=== PATIENT | male | born 1960 | race Caucasian/White ===

== ENCOUNTER 2016-09-23 11:14 | Inpatient (IN) | payer OTHER ==
[2016-09-23 11:49] VITALS: BMI 30.9
--- NOTE | 2016-09-23 13:44 | HP ---
CIWA Score - CIWA Score Nausea/Vomitin Muscle Tremors: 3 Anxiety: 3 Agitation: 3 Paroxysmal Sweats: 3 Orientation: 0-Oriented Tacttile Disturbances: 2-Mild Itch/Numbness/Burn Auditory Disturbances: 0-None Visual Disturbances: 0-None Headache: 1-Very Mild CIWA-Ar Total Score: 17 Admission ROS BHS - HPI Chief Complaint: I need help to stop using alcohol and cocaine . Allergies/Adverse Reactions: Allergies Allergy/AdvReac Type Severity Reaction Status Date / Time aspirin AdvReac Severe Vomiting Verified 09/23/16 12:49 History of Present Illness: 56 y/o m h pt with h/o chronic alcoholism and cocaine dep. Exam Limitations: No Limitations - Ebola screening Have you traveled outside of the country in the last 21 days: No Have you had contact with anyone from an Ebola affected area: No Have you been sick,other than usual withdrawal symptoms: No - Review of Systems Constitutional: Malaise, Night Sweats EENT: reports: Dental Problems (dentures) Respiratory: reports: No Symptoms reported Cardiac: reports: No Symptoms Reported GI: reports: Nausea, Indigestion : reports: No Symptoms Reported Musculoskeletal: reports: No Symptoms Reported Integumentary: reports: No Symptoms Reported Neuro: reports: Headache, Tremors Endocrine: reports: No Symptoms Reported Hematology: reports: No Symptoms Reported Psychiatric: reports: Agitated, Anxious, Depressed Other Systems: Reviewed and Negative Patient History - Patient Medical History Hx Anemia: No Hx Asthma: No Hx Chronic Obstructive Pulmonary Disease (COPD): No Hx Cancer: No Hx Cardiac Disorders: No Hx Congestive Heart Failure: No Hx Hypertension: No Hx Hypercholesterolemia: No Hx Pacemaker: No HX Cerebrovascular Accident: No Hx Seizures: No Hx Dementia: No Hx Diabetes: No Hx Gastrointestinal Disorders: Yes (acid reflux) Hx Liver Disease: No Hx Genitourinary Disorders: No Hx Sexually Transmitted Disorders: No Hx Renal Disease (ESRD): No Hx Thyroid Disease: No Hx Human Immunodeficiency Virus (HIV): No Hx Hepatitis C: No Hx Depression: Yes Hx Suicide Attempt: No Hx Bipolar Disorder: Yes Hx Schizophrenia: No - Patient Surgical History Past Surgical History: Yes Hx Neurologic Surgery: No Hx Cataract Extraction: No Hx Cardiac Surgery: No Hx Lung Surgery: No Hx Breast Surgery: No Hx Breast Biopsy: No Hx Abdominal Surgery: No Hx Appendectomy: No Hx Cholecystectomy: No Hx Genitourinary Surgery: No Hx Section: No Hx Orthopedic Surgery: Yes (left hand tendon repair in 1982) Other Surgical History: LEFT HAND -1982 Anesthesia Reaction: No - PPD History Previous Implant?: Yes Documented Results: Positive w/o proof Implanted On Prior [facility] Admission?: No PPD to be Administered?: No - Reproductive History Patient is a Female of Child Bearing Age (11 -55 yrs old): No - Smoking Cessation Smoking history: Current every day smoker Have you smoked in the past 12 months: Yes Aproximately how many cigarettes per day: 6 Cigars Per Day: 0 Hx Chewing Tobacco Use: No Initiated information on smoking cessation: Yes 'Breaking Loose' booklet given: 09/23/16 - Substance & Tx. History Hx Alcohol Use: Yes Hx Substance Use: Yes Substance Use Type: Alcohol, Cocaine, Marijuana Hx Substance Use Treatment: Yes ([facility]) - Substances Abused Crack Route: Oral Frequency: Daily Amount used: $100-200 Age of first use: 24 Date of Last Use: 09/21/16 Alcohol-beer/rum Route: Oral Frequency: Daily Amount used: 3 (16 oz.)/1 pt.rum Age of first use: 13 Date of Last Use: 09/21/16 Marijuana Route: Smoking Frequency: Daily Amount used: $5 Age of first use: 11 Date of Last Use: 09/21/16 Family Disease History - Family Disease History Family Disease History: Diabetes: Father (), Brother, Other: Father, Mother (alzheimers ) Admission Physical Exam BHS - Vital Signs Vital Signs: Vital Signs - 24 hr 09/23/16 11:47 Temperature 97.5 F L Pulse Rate 85 Respiratory 18 Rate Blood Pressure 135/87 - Physical General Appearance: Yes: Disheveled, Tremorous, Irritable, Anxious HEENTM: Yes: EOMI, Hearing grossly Normal, Normal ENT Inspection, Normocephalic , Normal Voice, NEIDA, Other (dentures) Respiratory: Yes: Chest Non-Tender, Lungs Clear, Normal Breath Sounds, No Respiratory Distress Neck: Yes: Trachea in good position, Other (h/o c/s stenosis) Breast: Yes: Within Normal Limits Cardiology: Yes: Regular Rhythm, Regular Rate, S1, S2 Abdominal: Yes: Non Tender, Flat, Soft, Increased Bowel Sounds Genitourinary: Yes: Within Normal Limits Back: Yes: Decreased Range of Motion Musculoskeletal: Yes: Joint Stiffness Extremities: Yes: Tremors Neurological: Yes: project executive II-XII NML intact, Fully Oriented, Alert, Motor Strength 5/5, Normal Response Integumentary: Yes: Moist Lymphatic: Yes: Within Normal Limits - Diagnostic (1) Alcohol dependence with uncomplicated withdrawal Current Visit: Yes Status: Chronic (2) Chronic back pain Current Visit: Yes Status: Chronic Qualifiers: Back pain location: low back pain Back pain laterality: bilateral Sciatica presence: without sciatica Qualified Code(s): M54.5 - Low back pain; G89.29 - Other chronic pain (3) GERD (gastroesophageal reflux disease) Current Visit: Yes Status: Chronic Qualifiers: Esophagitis presence: without esophagitis Qualified Code(s): K21.9 - Gastro-esophageal reflux disease without esophagitis (4) Hypertension Current Visit: Yes Status: Chronic Qualifiers: Hypertension type: essential hypertension Qualified Code(s): I10 - Essential (primary) hypertension (5) Bipolar II disorder Current Visit: Yes Status: Suspected (6) Nicotine dependence Current Visit: Yes Status: Acute (7) Depression Current Visit: Yes Status: Chronic Qualifiers: Major depression episode severity: unspecified Cleared for Admission S - Detox or Rehab [facility] Level of Care: Medically Managed Detox Regimen/Protocol: Valium S Breath Alcohol Content Breath Alcohol Content: 0 Urine Drug Screen - Results Drug Screen Negative: No Urine Drug Screen Results: THC-Marijuana, MONALISA-Cocaine, TCA-Tricyclic Antidepress
[2016-09-23] MEDS ORDERED: diazePAM 5 MG TABLET PO PRN (14:13)
[2016-09-23] MEDS ORDERED: MAGNESIUM HYDROX 2400MG/30ML ORAL SUSPENSION 30 ML CUP PO PRN (14:13)
[2016-09-23] MEDS ORDERED: ACETAMINOPHEN 325 MG TABLET (FP) PO PRN (14:13)
[2016-09-23] MEDS ORDERED: IBUPROFEN 400 MG TABLET (FP) PO PRN (14:13)
[2016-09-23] MEDS ORDERED: MAGNESIUM CITRATE 300 ML BOTTLE PO PRN (14:13)
[2016-09-23] MEDS ORDERED: diphenhydrAMINE HCL 50 MG CAPSULE PO PRN (14:13)
[2016-09-23] MEDS ORDERED: LOPERAMIDE HCL 2 MG CAPSULE PO PRN (14:13)
[2016-09-23] MEDS ORDERED: MENTHOL/PHENOL 1 EACH UD MM PRN (14:13)
[2016-09-23] MEDS ORDERED: NICOTINE POLACRILEX 2 MG GUM BUC PRN (14:13)
[2016-09-23] MEDS ORDERED: guaiFENesin/D-METHORPHAN HB 10 ML UNIT-DOSE CUPS PO PRN (14:13)
[2016-09-23] MEDS ORDERED: hydrOXYzine PAMOATE 25 MG CAPSULE (FP) PO PRN (14:13)
[2016-09-23] MEDS ORDERED: MAG HYDROX/AL HYDROX/SIMETH 30 ML UNIT-DOSE CUP PO PRN (14:13)
[2016-09-23] MEDS ORDERED: P-EPHED 60MG/TRIPROLIDI 2.5MG TABLET PO PRN (14:13)
[2016-09-23] MEDS ORDERED: diazePAM 5 MG TABLET PO ONE (14:55)
[2016-09-23 18:17] LABS: URINE APPEARANCE CLEAR; URINE BILIRUBIN NEGATIVE (NEGATIVE); URINE BLOOD NEGATIVE (NEGATIVE); URINE COLOR YELLOW; URINE GLUCOSE (UA) NEGATIVE (NEGATIVE); URINE KETONE NEGATIVE (NEGATIVE); URINE LEUK ESTERASE NEGATIVE (NEGATIVE); URINE NITRITE NEGATIVE (NEGATIVE); URINE PROTEIN NEGATIVE (NEGATIVE); URINE UROBILINOGEN NEGATIVE E.U./dl (0.2-1.0)
[2016-09-23] MEDS ORDERED: CLOTRIMAZOLE 1% 10 ML SOLUTION TP SCH (22:00)
[2016-09-23] MEDS ORDERED: THIAMINE HCL 100 MG TABLET (FP) PO SCH (22:00)
[2016-09-23] MEDS: diazePAM 5 MG TABLET PO SCH (22:58)
[2016-09-24] MEDS: diazePAM 5 MG TABLET PO SCH (05:47)
[2016-09-24] MEDS ORDERED: CYCLOBENZAPRINE HCL 10 MG TABLET (FP) PO PRN (06:07)
[2016-09-24 06:32] VITALS: BP 143/92; PULSE 86; TEMP 97.1
[2016-09-24 09:54] LABS: MCH 31.5 pg (25.7-33.7); MCHC 34.6 g/dl (32.0-35.9); MEAN CELL VOLUME 90.9 fl (80-96); MEAN PLT VOLUME 7.9 fl (7.5-11.1); PLATELET COUNT 303 K/MM3 (134-434); RDW 13.8 % (11.9-15.9); WHITE BLOOD COUNT 6.5 K/mm3 (4.0-10.0)
[2016-09-24] MEDS ORDERED: PRENATAL VITAMINS W/ FOLIC ACID TABLET (FP) PO SCH (10:00)
[2016-09-24 10:06] LABS: ALBUMIN 4.2 g/dl (3.4-5.0); ANION GAP 9 (8-16); BILIRUBIN,TOTAL 0.4 mg/dL (0.2-1.0); CALCIUM 8.9 mg/dL (8.5-10.1); CO2 25 mmol/L (21-32); COCKROFT - GAULT 100.3; GLUCOSE,RANDOM 125 mg/dL (74-106); SGOT/AST 41 U/L (15-37); SGPT/ALT 42 U/L (12-78); TOT PROT 7.2 g/dl (6.4-8.2)
[2016-09-24 10:07] LABS: ALK PHOS 64 U/L (45-117)
--- NOTE | 2016-09-24 11:07 | DS ---
[facility] Detox Discharge Summary Admission Date: 09/23/16 Discharge Date: 09/24/16 - History Present History: Alcohol Dependence Additional Comments: PT DECLINED TO CONTINUE WITH DETOX. PT LEFT TREATMENT VERY EARLY THIS MORNING AFTER SOME DISRUPTIVE BEHAVIORS, PER NURSE'S REPORT. Pertinent Past History: BIPOLAR DISORDER - Physical Exam Results Vital Signs: Vital Signs Temperature 97.1 F L 09/24/16 06:32 Pulse Rate 86 09/24/16 06:32 Respiratory Rate 16 09/24/16 06:32 Blood Pressure 143/92 09/24/16 06:32 O2 Sat by Pulse Oximetry (%) Pertinent Admission Physical Exam Findings: WITHDRAWAL SX Laboratory Last Values WBC 6.5 K/mm3 (4.0-10.0) 09/24/16 06:00 RBC 4.65 M/mm3 (4.00-5.60) 09/24/16 06:00 Hgb 14.6 GM/dL (11.7-16.9) 09/24/16 06:00 Hct 42.3 % (35.4-49) 09/24/16 06:00 MCV 90.9 fl (80-96) 09/24/16 06:00 MCHC 34.6 g/dl (32.0-35.9) 09/24/16 06:00 RDW 13.8 % (11.9-15.9) 09/24/16 06:00 Plt Count 303 K/MM3 (134-434) 09/24/16 06:00 MPV 7.9 fl (7.5-11.1) 09/24/16 06:00 Sodium 141 mmol/L (136-145) 09/24/16 06:00 Potassium 4.4 mmol/L (3.5-5.1) 09/24/16 06:00 Chloride 107 mmol/L (98-107) 09/24/16 06:00 Carbon Dioxide 25 mmol/L (21-32) 09/24/16 06:00 Anion Gap 9 (8-16) 09/24/16 06:00 BUN 17 mg/dL (7-18) 09/24/16 06:00 Creatinine 1.0 mg/dL (0.7-1.3) 09/24/16 06:00 Creat Clearance w eGFR > 60 (>60) 09/24/16 06:00 Random Glucose 125 mg/dL (74-106) H 09/24/16 06:00 Calcium 8.9 mg/dL (8.5-10.1) 09/24/16 06:00 Total Bilirubin 0.4 mg/dL (0.2-1.0) 09/24/16 06:00 AST 41 U/L (15-37) H 09/24/16 06:00 ALT 42 U/L (12-78) 09/24/16 06:00 Alkaline Phosphatase 64 U/L (45-117) 09/24/16 06:00 Total Protein 7.2 g/dl (6.4-8.2) 09/24/16 06:00 Albumin 4.2 g/dl (3.4-5.0) 09/24/16 06:00 Urine Color Yellow 09/23/16 14:00 Urine Appearance Clear 09/23/16 14:00 Urine pH 5.0 (5.0-8.0) 09/23/16 14:00 Ur Specific [place] 1.025 (1.005-1.025) 09/23/16 14:00 Urine Protein Negative (NEGATIVE) 09/23/16 14:00 Urine Glucose (UA) Negative (NEGATIVE) 09/23/16 14:00 Urine Ketones Negative (NEGATIVE) 09/23/16 14:00 Urine Blood Negative (NEGATIVE) 09/23/16 14:00 Urine Nitrite Negative (NEGATIVE) 09/23/16 14:00 Urine Bilirubin Negative (NEGATIVE) 09/23/16 14:00 Urine Urobilinogen Negative E.U./dl (0.2-1.0) 09/23/16 14:00 Ur Leukocyte Esterase Negative (NEGATIVE) 09/23/16 14:00 - Medication Discharge Medications: Ambulatory Orders Lisinopril [Prinivil -] 10 mg PO DAILY 09/22/16 Citalopram Hydrobromide [Citalopram HBr] 10 mg PO DAILY 09/23/16 Cyclobenzaprine HCl [Flexeril 10 mg] 10 mg PO TID 09/23/16 Divalproex Sodium 500 mg PO HS 09/23/16 - AMA Did Patient Leave Against Medical Advice: Yes
--- NOTE | 2016-09-24 16:38 | EKG ---
Test Reason : Blood Pressure : / mmHG Vent. Rate : 087 BPM Atrial Rate : 087 BPM P-R Int : 144 ms QRS Dur : 108 ms QT Int : 364 ms P-R-T Axes : 057 013 035 degrees QTc Int : 438 ms NORMAL SINUS RHYTHM POSSIBLE LEFT ATRIAL ENLARGEMENT INCOMPLETE RIGHT BUNDLE BRANCH BLOCK BORDERLINE ECG NO PREVIOUS ECGS AVAILABLE Confirmed by LION GREENE, RUPINDER ([id number]) on 09/24/2016 4:37:46 PM Referred By: Confirmed By:RUPINDER SEYMOUR MD
[2016-09-25] MEDS ORDERED: diazePAM 5 MG TABLET PO SCH (10:00)
[2016-09-27] MEDS ORDERED: diazePAM 5 MG TABLET PO SCH (10:00)
== END 2016-09-24 07:54 | disposition left against medical advice (07) | DRG 770 ==
LOC: YASAS 11:14 → Y3N 14:38
PROVIDERS: ADMIT Internal Medicine; ATTEND Internal Medicine
PROC: HZ2ZZZZ Detoxification Services for Substance Abuse Treatment (ICD-10-PCS; principal; 2016-09-24)
DX: F10.230 Alcohol dependence with withdrawal, uncomplicated (principal); F14.20 Cocaine dependence, uncomplicated; F12.20 Cannabis dependence, uncomplicated; F32.9 Major depressive disorder, single episode, unspecified; F31.81 Bipolar II disorder; I10 Essential (primary) hypertension; K21.9 Gastro-esophageal reflux disease without esophagitis; M54.5 Low back pain; G89.29 Other chronic pain
CPT/HCPCS: 36415; 80053; 81003; 85027; 86593; 93005; 93010

== ENCOUNTER 2022-08-23 14:25 | Inpatient (IN) | payer OTHER ==
[2022-08-23 14:46] VITALS: BMI 27.4
[2022-08-23] MEDS ORDERED: BENZOCAINE/MENTHOL (CHLORASEPTIC ) LOZENGE MM PRN (15:59)
[2022-08-23] MEDS ORDERED: AMMONIUM LACTATE 12% LOTION 225 GM BOTTLE TP PRN (15:59)
[2022-08-23] MEDS ORDERED: LOPERAMIDE HCL 2 MG CAPSULE PO PRN (15:59)
[2022-08-23] MEDS ORDERED: BENZONATATE 200 MG CAPSULE PO PRN (15:59)
[2022-08-23] MEDS ORDERED: NICOTINE POLACRILEX 2 MG GUM BUC PRN (15:59)
[2022-08-23] MEDS ORDERED: MAG HYDROX/AL HYDROX/SIMETH 30 ML UNIT-DOSE CUP PO PRN (15:59)
[2022-08-23] MEDS ORDERED: POLYETHYLENE GLYCOL (HEALTHYLAX) 3350 17 GM PACKET PO PRN (15:59)
[2022-08-23] MEDS ORDERED: guaiFENesin 600 MG TABLET.ER (FP) PO PRN (15:59)
[2022-08-23] MEDS ORDERED: COLLOIDAL OATMEAL 1 BAR EACH TP PRN (15:59)
[2022-08-23] MEDS ORDERED: hydrOXYzine PAMOATE 25 MG CAPSULE (FP) PO PRN (15:59)
[2022-08-23] MEDS ORDERED: MAGNESIUM HYDROX 2400MG/30ML ORAL SUSPENSION 30 ML CUP PO PRN (15:59)
[2022-08-23] MEDS ORDERED: NALOXONE HCL 0.4 MG/ML VIAL IM PRN (15:59)
[2022-08-23] MEDS ORDERED: NALOXONE HCL (KLOXXADO) 8 MG SPRAY NS PRN (15:59)
[2022-08-23] MEDS ORDERED: ACETAMINOPHEN 325 MG TABLET (FP) PO PRN (15:59)
[2022-08-23] MEDS ORDERED: PATIENT'S OWN MEDICATION (NON-FORMULARY) (Lisinopril [Prinivil -] 40 MG Tablet) PO SCH (16:15)
[2022-08-23] MEDS ORDERED: BACLOFEN 10 MG TABLET (FP) PO PRN (17:12)
[2022-08-23 18:18] VITALS: RESP 20
[2022-08-23] MEDS ORDERED: NITROGLYCERIN SUBLINGUAL 1/150 0.4 MG TAB ONE (21:11)
[2022-08-23] MEDS ORDERED: NITROGLYCERIN SUBLINGUAL 1/150 0.4 MG TAB SL ONE (21:12)
[2022-08-23 21:21] VITALS: BP 105/69; PULSE 79; TEMP 97.8
[2022-08-23] MEDS ORDERED: THIAMINE HCL 100 MG TABLET (FP) PO SCH (22:00)
[2022-08-23] MEDS ORDERED: MELATONIN 5 MG TABLETS PO SCH (22:00)
[2022-08-24] MEDS ORDERED: LISINOPRIL 10 MG TABLET PO SCH (10:00)
[2022-08-24] MEDS ORDERED: PRENATAL VITAMINS W/ FOLIC ACID TABLET (FP) PO SCH (10:00)
== END 2022-08-23 21:31 | DRG 772 ==
LOC: YASAS 14:25 → Y3W 16:23
PROVIDERS: ADMIT Allergy & Immunology; ATTEND Allergy & Immunology
PROC: HZ42ZZZ Group Counseling for Substance Abuse Treatment, Cognitive-Behavioral (ICD-10-PCS; principal; 2022-08-23)
DX: F14.20 Cocaine dependence, uncomplicated (principal); F17.210 Nicotine dependence, cigarettes, uncomplicated; F20.9 Schizophrenia, unspecified; F31.81 Bipolar II disorder; F41.9 Anxiety disorder, unspecified; I10 Essential (primary) hypertension; J44.9 Chronic obstructive pulmonary disease, unspecified; M54.50 Low back pain, unspecified; G89.29 Other chronic pain; K21.9 Gastro-esophageal reflux disease without esophagitis; Z59.02 Unsheltered homelessness
CPT/HCPCS: 82962; C9803-CS; J0475; U0003; U0005